=== PATIENT | female | born 1950 | race Caucasian/White ===

== ENCOUNTER → 2017-02-05 | Outpatient (CLI) | payer OTHER ==
[2016-04-24 09:02] VITALS: BP 111/68
[~2017-02-05] MED LIST: ASPIR LOW81 MG PO; ATENOLOL25 MG PO; BOTT PO; DAILY MULTIPLE1 T18 PO; FLONASE ALLERG9.9 ML NS; FLONASE0.05 MG/AC NS; LEVAQUIN 750MG750 M1 PO; NORCO 325 MG-51 TA1 PO; OMEPRAZOLE20 MG PO; TESSALON PERLE100 M1 PO; ZITHROMAX Z PA250 MG PO; [UNRECOGNIZED DRUG - OTHER] PO
== END ==
LOC: RAD 08:22
DX: R05 Cough (principal)

== ENCOUNTER 2017-07-16 12:59 | Outpatient (RCR) | payer OTHER ==
[2016-04-24 09:02] VITALS: BP 111/68
== END 2017-07-16 13:30 | disposition home or self-care (01) ==
LOC: OT 12:59
DX: M79.645 Pain in left finger(s) (principal); G89.21 Chronic pain due to trauma